=== PATIENT | male | born 1980 | race American Indian/Alaskan Native ===

== ENCOUNTER 2017-08-11 18:42 | Emergency (ER) | payer MEDICAID ==
[2017-08-11] MEDS ORDERED: Sodium Chloride 0.9% 1,000 ML IV SCH ×2 (19:00→20:45)
[2017-08-11] MEDS ORDERED: Aspirin 81 MG Tab.Chew PO ONE (19:23)
[2017-08-11] MEDS ORDERED: Sodium Chloride 0.9% 100 ML IV SCH (19:45)
[2017-08-11] MEDS ORDERED: Iopamidol 612 MG/ML 100 ML Bottle IV SCH (19:45)
--- NOTE | 2017-08-11 22:14 | EDM.PDOC ---
ED HPI GENERAL MEDICAL PROBLEM - General Chief Complaint: Diabetic Complaint Stated Complaint: DIZZY Time Seen by Provider: 08/11/17 19:01 Source of Information: Reports: Patient History Limitations: Reports: No Limitations - History of Present Illness INITIAL COMMENTS - FREE TEXT/NARRATIVE: Dizziness and sweating; this is a 36-year-old male presents emergency room by private vehicle reports feeling very dizzy for the past 3 or 4 days today whenever he stood up he felt like he was going to faint, at which time he became very sweaty and had sharp tingling pains in his head and pain in the left chest. Reports past history of a drug overdose in 1999, at which time he had a injury to his left lung, reports they placed a stent in his lung. Past history of hyperlipidemia, hypertension. Untreated diabetes. Denies drug use except for the occasional marijuana and reports drinking once a week. Last drinking was last Saturday. Family history; mother of heart attack in her late 40s, and grandfather in his late 60s. Lives in [facility] Onset: Gradual Duration: Day(s): (3 or 4 days) Location: Reports: Generalized Severity: Moderate Improves with: Reports: Rest Worsens with: Reports: Movement Associated Symptoms: Reports: Cough, Fever/Chills (No fever, reports feeling chilled.), Headaches (Today only), Nausea/Vomiting, Shortness of Breath (With activity), Weakness left shoulder/left lung Pain Score (Numeric/FACES): 5 - Related Data Allergies Allergy/AdvReac Type Severity Reaction Status Date / Time No Known Allergies Allergy Verified 08/11/17 19:00 Home Meds: Home Meds NK [No Known Home Meds] 08/11/17 [History] Past Medical History Musculoskeletal History: Reports: Fracture Psychiatric History: Reports: Addiction, Suicide Attempt, Suicidal Ideation Endocrine/Metabolic History: Reports: Diabetes, Type II, Obesity/BMI 30+ - Infectious Disease History Infectious Disease History: Reports: Chicken Pox Social & Family History - Tobacco Use Smoking Status *Q: Never Smoker - Caffeine Use Caffeine Use: Reports: Coffee, Soda, Tea - Recreational Drug Use Recreational Drug Use: No ED ROS GENERAL - Review of Systems Review Of Systems: See Below Constitutional: Reports: Chills, Weakness, Fatigue, Decreased Appetite HEENT: Reports: No Symptoms Respiratory: Reports: Shortness of Breath (With activity), Pleuritic Chest Pain , Cough (Occasional), Sputum (Occasional's productive cough with white sputum) Cardiovascular: Reports: No Symptoms, Lightheadedness Endocrine: Reports: Fatigue, Other (Has diabetes but is not monitor blood glucose or take medications) GI/Abdominal: Reports: Nausea : Reports: No Symptoms Musculoskeletal: Reports: Back Pain, Muscle Pain Skin: Reports: Other (reports multiple tick bites in the past 2 months 1 developed a rash but then resolved) Neurological: Reports: Dizziness, Headache, Weakness Psychiatric: Reports: No Symptoms Hematologic/Lymphatic: Reports: No Symptoms Immunologic: Reports: No Symptoms ED EXAM GENERAL NO PERIP PULSE - Physical Exam Exam: See Below Exam Limited By: No Limitations General Appearance: Alert, WD/WN, Mild Distress (Patient is diaphoretic, his shirt is wet.) Eye Exam: Bilateral Eye: Normal Inspection Ears: Normal External Exam, Normal Canal, Hearing Grossly Normal, Normal TMs Nose: Normal Inspection, Normal Mucosa, No Blood Throat/Mouth: Normal Inspection, Normal Lips, Normal Teeth, Normal Gums, Normal Oropharynx, Normal Voice, No Airway Compromise Head: Atraumatic, Normocephalic Neck: Normal Inspection, Supple, Non-Tender, Full Range of Motion Respiratory/Chest: No Respiratory Distress, Lungs Clear, Normal Breath Sounds, No Accessory Muscle Use, Chest Non-Tender Cardiovascular: Normal Peripheral Pulses, Regular Rate, Rhythm, No Edema, No Gallop, No JVD, No Murmur, No Rub GI/Abdominal: Normal Bowel Sounds, Soft, Non-Tender, No Organomegaly, No Distention, No Abnormal Bruit, No Mass (Male) Exam: Deferred Rectal (Males) Exam: Deferred Back Exam: Normal Inspection, Full Range of Motion, NT Extremities: Normal Inspection, Normal Range of Motion, Non-Tender, Normal Capillary Refill, No Pedal Edema Neurological: Alert, Oriented, CN II-XII Intact, Normal Cognition, Normal Gait, Normal Reflexes, No Motor/Sensory Deficits Psychiatric: Normal Affect, Normal Mood Skin Exam: Intact, Normal Color, No Rash, Diaphoretic (Diaphoresis at the initial ER exam, patient received IV fluids now dry normal temperature) Lymphatic: No Adenopathy Course - Vital Signs Last Recorded V/S: Last Vital Signs Temp 36.7 C 08/11/17 19:20 Pulse 98 07/01/18 21:11 Resp 16 08/11/17 21:11 BP 102/63 08/11/17 21:11 Pulse Ox 99 08/11/17 21:11 - Orders/Labs/Meds Orders: Active Orders 24 hr Category Date Time Status EKG Documentation Completion [RC] ASDIRECTED Care 08/11/17 19:01 Active Chest 1V Frontal [CR] Urgent Exams 08/11/17 19:24 Taken Chest w Cont [CT] Stat Exams 08/11/17 19:39 Taken DRUG SCREEN, URINE [URCHEM] Stat Lab 08/11/17 20:10 Ordered UA W/MICROSCOPIC [URIN] Stat Lab 08/11/17 20:10 Ordered EKG 12 Lead [EK] Urgent Ther 08/11/17 19:00 Ordered Labs: Laboratory Tests 08/11/17 08/11/17 08/11/17 Range/Units 19:17 19:17 19:17 WBC 12.5 H (4.5-11.0) K/uL RBC 5.18 (4.30-5.90) M/uL Hgb 14.8 (12.0-15.0) g/dL Hct 41.4 (40.0-54.0) % MCV 80 (80-98) fL MCH 29 (27-31) pg MCHC 36 (32-36) % Plt Count 215 (150-400) K/uL Neut % (Auto) 74 H (36-66) % Lymph % (Auto) 17 L (24-44) % [place] % (Auto) 8 H (2-6) % Eos % (Auto) 0 L (2-4) % Baso % (Auto) 1 (0-1) % PT (9.5-12.0) sec INR (0.80-1.20) Sodium 132 L (140-148) mmol/L Potassium 3.2 L (3.6-5.2) mmol/L Chloride 97 L (100-108) mmol/L Carbon Dioxide 24 (21-32) mmol/L Anion Gap 14.2 H (5.0-14.0) mmol/L BUN 11 (7-18) mg/dL Creatinine 1.1 (0.8-1.3) mg/dL Est Cr Clr Drug Dosing 91.95 mL/min Estimated GFR (MDRD) > 60 (>60) Glucose 193 H (74-106) mg/dL Lactic Acid 2.0 (0.4-2.0) mmol/L Calcium 8.4 L (8.5-10.1) mg/dL Total Bilirubin 0.7 (0.2-1.0) mg/dL AST 23 (15-37) U/L ALT 30 (12-78) U/L Alkaline Phosphatase 90 (46-116) U/L Troponin I (0.000-0.056) ng/mL Total Protein 7.8 (6.4-8.2) g/dL Albumin 2.6 L (3.4-5.0) g/dL Globulin 5.2 H (2.3-3.5) g/dL Albumin/Globulin Ratio 0.5 L (1.2-2.2) Urine Color Urine Appearance Urine pH (4.5-8.0) Ur Specific [place] (1.008-1.030) Urine Protein (NEGATIVE) mg/dL Urine Glucose (UA) (NEGATIVE) mg/dL Urine Ketones (NEGATIVE) mg/dL Urine Occult Blood (NEGATIVE) Urine Nitrite (NEGAITVE) Urine Bilirubin (NEGATIVE) Urine Urobilinogen (NORMAL) mg/dL Ur Leukocyte Esterase (NEGATIVE) Urine RBC (0-5) Urine WBC (0-5) Ur Epithelial Cells Amorphous Sediment Urine Bacteria Urine Mucus Urine Opiates Screen (NEGATIVE) Ur Oxycodone Screen (NEGATIVE) Urine Methadone Screen (NEGATIVE) Ur Propoxyphene Screen (NEGATIVE) Ur Barbiturates Screen (NEGATIVE) Ur Tricyclics Screen (NEGATIVE) Ur Phencyclidine Scrn (NEGATIVE) Ur Amphetamine Screen (NEGATIVE) U Methamphetamines Scrn (NEGATIVE) Urine MDMA Screen (NEGATIVE) U Benzodiazepines Scrn (NEGATIVE) U Cocaine Metab Screen (NEGATIVE) U Marijuana (THC) Screen (NEGATIVE) 08/11/17 08/11/17 08/11/17 Range/Units 19:17 19:25 20:10 WBC (4.5-11.0) K/uL RBC (4.30-5.90) M/uL Hgb (12.0-15.0) g/dL Hct (40.0-54.0) % MCV (80-98) fL MCH (27-31) pg MCHC (32-36) % Plt Count (150-400) K/uL Neut % (Auto) (36-66) % Lymph % (Auto) (24-44) % [place] % (Auto) (2-6) % Eos % (Auto) (2-4) % Baso % (Auto) (0-1) % PT 11.2 (9.5-12.0) sec INR 1.04 (0.80-1.20) Sodium (140-148) mmol/L Potassium (3.6-5.2) mmol/L Chloride (100-108) mmol/L Carbon Dioxide (21-32) mmol/L Anion Gap (5.0-14.0) mmol/L BUN (7-18) mg/dL Creatinine (0.8-1.3) mg/dL Est Cr Clr Drug Dosing mL/min Estimated GFR (MDRD) (>60) Glucose (74-106) mg/dL Lactic Acid (0.4-2.0) mmol/L Calcium (8.5-10.1) mg/dL Total Bilirubin (0.2-1.0) mg/dL AST (15-37) U/L ALT (12-78) U/L Alkaline Phosphatase (46-116) U/L Troponin I < 0.017 (0.000-0.056) ng/mL Total Protein (6.4-8.2) g/dL Albumin (3.4-5.0) g/dL Globulin (2.3-3.5) g/dL Albumin/Globulin Ratio (1.2-2.2) Urine Color Yellow Urine Appearance Cloudy Urine pH 6.0 (4.5-8.0) Ur Specific [place] 1.005 L (1.008-1.030) Urine Protein Negative (NEGATIVE) mg/dL Urine Glucose (UA) Normal (NEGATIVE) mg/dL Urine Ketones 15 H (NEGATIVE) mg/dL Urine Occult Blood Negative (NEGATIVE) Urine Nitrite Negative (NEGAITVE) Urine Bilirubin Small (NEGATIVE) Urine Urobilinogen 4 (NORMAL) mg/dL Ur Leukocyte Esterase Negative (NEGATIVE) Urine RBC 0-5 (0-5) Urine WBC 0-5 (0-5) Ur Epithelial Cells Few Amorphous Sediment Few Urine Bacteria Few Urine Mucus Few Urine Opiates Screen (NEGATIVE) Ur Oxycodone Screen (NEGATIVE) Urine Methadone Screen (NEGATIVE) Ur Propoxyphene Screen (NEGATIVE) Ur Barbiturates Screen (NEGATIVE) Ur Tricyclics Screen (NEGATIVE) Ur Phencyclidine Scrn (NEGATIVE) Ur Amphetamine Screen (NEGATIVE) U Methamphetamines Scrn (NEGATIVE) Urine MDMA Screen (NEGATIVE) U Benzodiazepines Scrn (NEGATIVE) U Cocaine Metab Screen (NEGATIVE) U Marijuana (THC) Screen (NEGATIVE) 08/11/17 Range/Units 20:10 WBC (4.5-11.0) K/uL RBC (4.30-5.90) M/uL Hgb (12.0-15.0) g/dL Hct (40.0-54.0) % MCV (80-98) fL MCH (27-31) pg MCHC (32-36) % Plt Count (150-400) K/uL Neut % (Auto) (36-66) % Lymph % (Auto) (24-44) % [place] % (Auto) (2-6) % Eos % (Auto) (2-4) % Baso % (Auto) (0-1) % PT (9.5-12.0) sec INR (0.80-1.20) Sodium (140-148) mmol/L Potassium (3.6-5.2) mmol/L Chloride (100-108) mmol/L Carbon Dioxide (21-32) mmol/L Anion Gap (5.0-14.0) mmol/L BUN (7-18) mg/dL Creatinine (0.8-1.3) mg/dL Est Cr Clr Drug Dosing mL/min Estimated GFR (MDRD) (>60) Glucose (74-106) mg/dL Lactic Acid (0.4-2.0) mmol/L Calcium (8.5-10.1) mg/dL Total Bilirubin (0.2-1.0) mg/dL AST (15-37) U/L ALT (12-78) U/L Alkaline Phosphatase (46-116) U/L Troponin I (0.000-0.056) ng/mL Total Protein (6.4-8.2) g/dL Albumin (3.4-5.0) g/dL Globulin (2.3-3.5) g/dL Albumin/Globulin Ratio (1.2-2.2) Urine Color Urine Appearance Urine pH (4.5-8.0) Ur Specific [place] (1.008-1.030) Urine Protein (NEGATIVE) mg/dL Urine Glucose (UA) (NEGATIVE) mg/dL Urine Ketones (NEGATIVE) mg/dL Urine Occult Blood (NEGATIVE) Urine Nitrite (NEGAITVE) Urine Bilirubin (NEGATIVE) Urine Urobilinogen (NORMAL) mg/dL Ur Leukocyte Esterase (NEGATIVE) Urine RBC (0-5) Urine WBC (0-5) Ur Epithelial Cells Amorphous Sediment Urine Bacteria Urine Mucus Urine Opiates Screen Negative (NEGATIVE) Ur Oxycodone Screen Negative (NEGATIVE) Urine Methadone Screen Negative (NEGATIVE) Ur Propoxyphene Screen Negative (NEGATIVE) Ur Barbiturates Screen Negative (NEGATIVE) Ur Tricyclics Screen Negative (NEGATIVE) Ur Phencyclidine Scrn Negative (NEGATIVE) Ur Amphetamine Screen Presumptive positive H (NEGATIVE) U Methamphetamines Scrn Presumptive positive H (NEGATIVE) Urine MDMA Screen Negative (NEGATIVE) U Benzodiazepines Scrn Negative (NEGATIVE) U Cocaine Metab Screen Negative (NEGATIVE) U Marijuana (THC) Screen Negative (NEGATIVE) Meds: Medications Discontinued Medications Generic Name Dose Route Start Last Admin Trade Name Brenden PRN Reason Stop Dose Admin Aspirin 324 mg 08/11/17 19:23 08/11/17 19:45 Aspirin PO 08/11/17 19:24 324 mg ONETIME ONE Administration Sodium Chloride 1,000 mls @ 999 mls/hr 08/11/17 19:00 08/11/17 19:40 Normal Saline IV 999 mls/hr ASDIRECTED IVAN Administration Sodium Chloride 100 mls @ 3 mls/sec 08/11/17 19:45 08/11/17 21:18 Normal Saline IV 3 mls/sec ASDIRECTED IVAN Administration Sodium Chloride 1,000 mls @ 999 mls/hr 08/11/17 20:45 08/11/17 21:29 Normal Saline IV 999 mls/hr ASDIRECTED IVAN Administration Iopamidol 100 ml 08/11/17 19:45 08/11/17 21:18 Isovue-300 (61%) IV 100 ml . DIRECTED IVAN Administration - Re-Assessments/Exams Free Text/Narrative Re-Assessment/Exam: 08/11/17 Mr. Moss initially was placed in the room, IV fluids started, labs and x-ray and imaging ordered Labs elevated white count otherwise not acute, urine drug screen positive for methamphetamine and amphetamine, troponin is negative Imaging: Chest x-ray no acute infiltrates, chest CT with contrast does not show any acute pathology at this time. Patient was given 2 L of fluid, 4 baby aspirin 's At the time of discharge patient is feeling much improved, skin is afebrile dry no sweating is noted patient ate large [employer] dinner without any nausea vomiting looks well and will plan to discharge to home with follow-up with primary care. Mr. Moss agrees with plan of care. Mr. Moss was also given a copy of CT report. Due to his multiple tick bites in the past 2 months will treat with doxycycline 100 mg by mouth twice a day 10 days, and Zofran 4 mg for any nausea. 08/11/17 22:43 Departure - Departure Time of Disposition: 22:25 Disposition: Home, Self-Care 01 Condition: Good Clinical Impression: Dehydration, At high risk for tick borne illness - Discharge Information Instructions: Tick Bite Information, Adult, [id number], Dehydration, Adult, [id number], Rehydration, Adult Referrals: PCP,None [Primary Care Provider] - Forms: ED Department Discharge Care Plan Goals: dehydration at risk for tick born illness -start Doxy 100mg by mouth in morning and evening for 10 days -Zofran 4mg every 8 hours as needed for nausea -push fluids, drink 8 to10 glasses of water per day -have a healthy life style Follow up with Primary Care Provider for recheck this week return to Clinic or ER if not improved or symptoms worsem - Problem List & Annotations (1) At high risk for tick borne illness SNOMED Code(s): 98210546 Code(s): Z91.89 - OTH PERSONAL RISK FACTORS, NOT ELSEWHERE CLASSIFIED Status: Acute Priority: High (2) Dehydration SNOMED Code(s): 92752896 Code(s): E86.0 - DEHYDRATION Status: Acute Priority: High - Problem List Review Problem List Initiated/Reviewed/Updated: Yes - My Orders Last 24 Hours: My Active Orders 08/11/17 19:00 EKG 12 Lead [EK] Urgent 08/11/17 19:01 EKG Documentation Completion [RC] ASDIRECTED 08/11/17 19:24 Chest 1V Frontal [CR] Urgent 08/11/17 19:39 Chest w Cont [CT] Stat 08/11/17 20:10 DRUG SCREEN, URINE [URCHEM] Stat UA W/MICROSCOPIC [URIN] Stat - Assessment/Plan Last 24 Hours: My Active Orders 08/11/17 19:00 EKG 12 Lead [EK] Urgent 08/11/17 19:01 EKG Documentation Completion [RC] ASDIRECTED 08/11/17 19:24 Chest 1V Frontal [CR] Urgent 08/11/17 19:39 Chest w Cont [CT] Stat 08/11/17 20:10 DRUG SCREEN, URINE [URCHEM] Stat UA W/MICROSCOPIC [URIN] Stat Plan: dehydration at risk for tick born illness -start Doxy 100mg by mouth in morning and evening for 10 days -Zofran 4mg every 8 hours as needed for nausea -push fluids, drink 8 to10 glasses of water per day -have a healthy life style Follow up with Primary Care Provider for recheck this week return to Clinic or ER if not improved or symptoms worsem
--- NOTE | 2017-08-15 10:08 | CR ---
Chest 1V Frontal INDICATION: dizziness, left chest pain COMPARISON: None FINDINGS: AP portable chest. Heart size normal. Minimal scarring or infiltrate left lung base. Otherwise negative.
== END 2017-08-11 22:25 | disposition home or self-care (01) ==
LOC: JP.ED 18:42
DX: E86.0 Dehydration (principal); E11.9 Type 2 diabetes mellitus without complications
CPT/HCPCS: 36415; 71045; 71260; 80053; 80305; 81001; 82962; 83605; 84484; 85025; 85610; 93005; 96360; 96361; 99285; A9270; J7030; Q9967

== ENCOUNTER 2022-01-19 21:20 | Inpatient (IN) | payer MEDICAID ==
[2022-01-19 22:19] LABS: ESTIMATED GFR 96 mL/min (>60)
[2022-01-19] MEDS ORDERED: Sodium Chloride 0.9% 10 ML Syringe FLUSH PRN ×2 (22:27→23:05)
[2022-01-19] MEDS ORDERED: Sodium Chloride 0.9% 1,000 ML IV SCH ×2 (22:30→23:15)
[2022-01-19 22:37] LABS: CORONAVIRUS COVID-19 NAA NEGATIVE (NEGATIVE)
[2022-01-19] MEDS ORDERED: Glucagon,Human Recombinant 1 MG Vial IM PRN (23:02)
[2022-01-19] MEDS ORDERED: 50% Dextrose in Water 50 ML Syringe IVPUSH PRN (23:02)
[2022-01-19] MEDS ORDERED: Albuterol/Ipratropium 3.0-0.5 MG/3 ML Neb Soln NEB ONE (23:02)
[2022-01-19] MEDS ORDERED: Insulin Regular, Human 100 Units/ML 3 ML Vial IVPUSH ONE (23:02)
[2022-01-19] MEDS: cefTRIAXone 1 GM in Sodium Chloride 0.9% 50 ML IV SCH (23:29)
[2022-01-20] MEDS ORDERED: Acetaminophen 325 MG Tab PO ONE (00:07)
[2022-01-20] MEDS ORDERED: Codeine/guaiFENesin 10-100 MG/5 ML Syrup 5 ML Cup PO PRN (00:43)
[2022-01-20] MEDS ORDERED: Albuterol 0.083% 2.5 MG/3 ML Neb Soln NEB PRN (00:43)
[2022-01-20] MEDS ORDERED: Morphine 2 MG/ML SYRINGE IVPUSH PRN (00:43)
[2022-01-20] MEDS ORDERED: Bisacodyl 5 MG Tab PO PRN (00:43)
[2022-01-20] MEDS ORDERED: Ondansetron 4 MG/2 ML SDV IV PRN (00:43)
[2022-01-20] MEDS ORDERED: Acetaminophen/HYDROcodone 325-5 MG Tab PO PRN (00:43)
[2022-01-20] MEDS ORDERED: Docusate Sodium 100 MG Cap PO PRN (00:43)
[2022-01-20] MEDS ORDERED: Acetaminophen 325 MG Tab PO PRN (00:43)
[2022-01-20] MEDS ORDERED: Melatonin 3 MG Tab PO PRN (00:43)
[2022-01-20] MEDS ORDERED: Ondansetron 4 MG Tab.DIS PO PRN (00:43)
[2022-01-20] MEDS ORDERED: LORazepam 2 MG/ML SDV IV PRN (00:43)
[2022-01-20] MEDS ORDERED: Sodium Chloride 0.9% 1,000 ML IV SCH (00:43)
[2022-01-20] MEDS: Enoxaparin 40 MG/0.4 ML Syringe SUBCUT SCH ×2 (01:36→20:55)
[2022-01-20] MEDS: Albuterol/Ipratropium 3.0-0.5 MG/3 ML Neb Soln NEB SCH ×5 (05:20→20:55)
[2022-01-20 07:54] LABS: HEMOGLOBIN A1C 7.6 % (4.5-6.2)
[2022-01-20] MEDS: Insulin Lispro 100 Unit/ML 3 ML KwikPen SUBCUT SCH ×4 (08:04→21:16)
[2022-01-20] MEDS: Nicotine 14 MG/24 Hr Patch TRDERM SCH (08:09)
[2022-01-20] MEDS: cefTRIAXone 1 GM in Sodium Chloride 0.9% 50 ML IV SCH ×2 (12:49→23:22)
[2022-01-20] MEDS ORDERED: metFORMIN 500 MG Tab PO SCH (13:00)
[2022-01-20] MEDS: metFORMIN 500 MG Tab PO SCH (17:36)
[2022-01-21 05:00] LABS: ESTIMATED GFR 96 mL/min (>60)
[2022-01-21] MEDS: Albuterol/Ipratropium 3.0-0.5 MG/3 ML Neb Soln NEB SCH ×2 (07:24→10:30)
[2022-01-21] MEDS: metFORMIN 500 MG Tab PO SCH (09:11)
[2022-01-21] MEDS: Insulin Lispro 100 Unit/ML 3 ML KwikPen SUBCUT SCH (09:11)
[2022-01-21] MEDS: Nicotine 14 MG/24 Hr Patch TRDERM SCH (09:11)
[2022-01-21] MEDS ORDERED: Albuterol 90 MCG/6.7 GM Inhaler INH PRN (09:38)
[2022-01-21] MEDS ORDERED: Cefdinir 300 MG Cap PO SCH (21:00)
== END 2022-01-21 11:00 | disposition home or self-care (01) | DRG 871 ==
LOC: JP.ED 21:20 → JP.MS 01-20 00:09
PROVIDERS: ADMIT Hospitalist; ATTEND Hospitalist
DX: A41.9 Sepsis, unspecified organism (principal); E11.10 Type 2 diabetes mellitus with ketoacidosis without coma; J20.8 Acute bronchitis due to other specified organisms; E86.0 Dehydration; L60.0 Ingrowing nail; E66.9 Obesity, unspecified; B96.89 Other specified bacterial agents as the cause of diseases classified elsewhere; F17.210 Nicotine dependence, cigarettes, uncomplicated; Z20.822 Contact with and (suspected) exposure to COVID-19; Z79.84 Long term (current) use of oral hypoglycemic drugs; Z68.32 Body mass index [BMI] 32.0-32.9, adult
CPT/HCPCS: 0241U; 36415; 71046; 71046-26; 80048; 80053; 80305-QW; 80307; 81001; 82009; 82803; 82947; 83036; 83605; 84145; 85025; 85027; 85379; 86140; 87040; 93005; 94640; 96361; 96365; 99285-25; A9270-GY; J0696; J1650; J1815; J1815-GY; J2060; J3490; J7030; J7620

== ENCOUNTER 2022-11-07 10:38 | Emergency (ER) | payer MEDICAID | END 2022-11-07 11:42 | disposition home or self-care (01) | LOC: JP.ED 10:38 | DX: Z20.822 Contact with and (suspected) exposure to COVID-19 (principal); F17.210 Nicotine dependence, cigarettes, uncomplicated | CPT/HCPCS: 99284; U0002 ==